=== PATIENT | male | born 1995 | race Caucasian/White ===

== ENCOUNTER 2017-06-29 01:01 | Emergency (ER) | payer OTHER ==
[2017-06-29] MEDS: LIDOCAINE/MYLANTA 40 ML BTL PO (02:10)
== END 2017-06-29 02:24 | disposition home or self-care (01) ==
LOC: FTE 02:24
DX: R09.89 Other specified symptoms and signs involving the circulatory and respiratory systems (principal)
CPT/HCPCS: 99282